=== PATIENT | male | born 1960 | race Caucasian/White ===

== ENCOUNTER 2025-06-16 13:45 | Outpatient (CLI) | payer OTHER, SELFPAY ==
--- OUTSIDE RECORDS SUMMARY | 2025-02-03 06:56 | XMS_ITS | Continuity of Care Document ---
Author Organization [facility] Address [address] [place] [address] Phone Care Team Providers Care Software Product Manager Name Role Phone Elizabeth CURRY, FACC, Prosper SERRANO Unavailable Unavailable Allergies, Adverse Reactions, Alerts Substance Reaction Status Criticality No Known Allergies Active No Inform ation Medications Medication Instructions Dosage Effective Dates (start - stop) Status Comments atorvastatin 10 mg tablet TAKE 1/2 OF A TABLET BY MOUTH EVERY OTHER DAY - Active amoxicillin 875 mg tablet TAKE 1 TABLET BY MOUTH TWICE A DAY UNTIL ALL GONE - Active Problems Condition Type Effective Dates (start - stop) Clini sharon Status Comments No Known Problems Procedures Procedure Date CT HRT W/O DYE W/CA TEST Advance Directives Directive Yes / No Effective Date File Name No Information Encounters Encounter Description Practice Location Reason(s) For Visit Diagnoses Date Provider Providers Copied on Encounter [facility], [address] [place] [address], [id number], tel:[phone] [facility] Christopher No Information 5 Elizabeth Cheng. [address] [place], [place] [address], [place], [id number], . tel:[phone] [facility], [address] [place] [address], [id number], tel:[phone] [facility] Sameer No Information 5 Elizabeth Cheng. [address] [place], [place] [address], [place], [id number], . tel:[phone] Referring Provider: Prosper Mo, [address] , [place], [address]. tel:[phone] [facility], [address] [place] [address], [id number], tel:[phone] [facility] No Information 5 [facility]. [address], [place], [place], [id number], . tel:[phone] [facility], [address] [place] [address], [id number], tel:[phone] [facility] Encounter for screening for cardiovascular disorders 5 [facility]. [address], [place], [place], [id number], . tel:[phone] Family History Family Member Type Diagnosis Age At Onset No Information Payers Payer name Insurance type Covered libertarian ID Authoriza tion(s) No Information Social History Type Description Quantity Date Captured Comments Sex Male Smoking Status No Information Chief Complaint And Reason For Visit No Information Reason For Referral Reason For Referral No Information History Of Present Illness Encounter Date Complaint History Of Prese nt Illness No Information Functional Status Date Functional Assessmen t No Information Instructions Date Instruction Additional Infor mation No Information Assessments Type Assessment Date No Information Patient Care Teams Name Effective Dates (start - stop) Status Members No Information
--- OUTSIDE RECORDS SUMMARY | 2025-02-03 06:56 | XMS_ITS | Continuity of Care Document ---
Author Organization [facility] Address [address] [place] [phone] Phone Care Team Providers Care Manager Operations Research Name Role Phone Elizabeth CURRY, FACC, Prosper [...] Diagnoses Date Provider Providers Copied on Encounter [facility], [address] [place] [address], [id number], tel:[phone] [facility] Christopher No Information 5 Elizabeth Cheng. [address] [place], [place] [address], [place], [id number], . tel:[phone] [facility], [address] [place] [address], [id number], tel:[phone] [facility] Sameer No Information 5 Elizabeth Cheng. [address] [place], [place] [address]Same[place], [place], [id number], . tel:[phone] Referring Provider: Prosper Mo, [address] , [place], [address]. tel:[phone] [facility], [address] [place] [address], [id number], tel:[phone] [facility] No Information 5 [facility]. [address], [place], [place], [id number], . tel:[phone] [facility], [address] [place] [address], [id number], tel:[phone] [facility] Encounter for screening for cardiovascular disorders 5 [facility]. [address], [place], [place], [id number], . tel:[phone] Family History Family Member Type Diagnosis Age At Onset No Information Payers Payer name Insurance type Covered democrat ID Authoriza tion(s) No Information Social History [...]
--- OUTSIDE RECORDS SUMMARY | 2025-02-03 06:56 | XMS_ITS | Continuity of Care Document ---
Author Organization [facility] Address [address] [place] [address] Phone Care Team Providers Care Receiving Specialist Name Role Phone Elizabeth CURRY, FACC, Prosper [...] Diagnoses Date Provider Providers Copied on Encounter [facility], [address] [place] [address], [id number], tel:[phone] [facility] Christopher No Information 5 Elizabeth Cheng. [address] [place], [place] [address], [id number], . tel:[phone] [facility], [address] [place] [address], [id number], tel:[phone] [facility] Sameer No Information 5 Elizabeth Cheng. [address] [place], [place] [address]Same[place], [place], [id number], . tel:[phone] Referring Provider: Prosper Mo, [address] , [place], [address]. tel:[phone] [facility], [address] [place] [address], [id number], tel:[phone] [facility] No Information 5 [facility]. [address], [place], [place], [id number], . tel:[phone] [facility], [address] [place] [address], [id number], tel:[phone] [facility] Encounter for screening for cardiovascular disorders 5 [facility]. [address], [place], [place], [id number], . tel:[phone] Family History Family Member Type Diagnosis Age At Onset No Information Payers Payer name Insurance type Covered green party ID Authoriza tion(s) No Information Social History [...]
--- OUTSIDE RECORDS SUMMARY | 2025-02-03 06:56 | XMS_ITS | Continuity of Care Document ---
Author Organization [facility] Address [address] [place] [address] Phone Care Team Providers Care Hand Ii Tube Bender Name Role Phone Elizabeth CURRY, FACC, Prosper [...] Diagnoses Date Provider Providers Copied on Encounter [facility], [address] [place] [address], [id number], tel:[phone] [facility] Christopher No Information 5 Elizabeth Cheng. [address] [place], [place] [address], [place], [id number], . tel:[phone] [facility], [address] [place] [address], [id number], tel:[phone] [facility] Sameer No Information 5 Elizabeth Cheng. [address] [place], [place] [address], [place], [id number], . tel:[phone] Referring Provider: Prosper Mo, [address] , [place], [address]. tel:[phone] [facility], [address] [place] [address], [id number], tel:[phone] [facility] No Information 5 [facility]. [address], [place], [place], [id number], . tel:[phone] [facility], [address] [place] [address], [id number], tel:[phone] [facility] Encounter for screening for cardiovascular disorders 5 [facility]. [address], [place], [place], [id number], . tel:[phone] Family History Family Member Type Diagnosis Age At Onset No Information Payers Payer name Insurance type Covered alliance party ID Authoriza tion(s) No Information Social [...]
--- OUTSIDE RECORDS SUMMARY | 2025-02-03 06:56 | XMS_ITS | Continuity of Care Document ---
Author Organization [facility] Address [address] [place] [address] Phone Care Team Providers Care Diesel Lube Tech Name Role Phone Elizabeth CURRY, FACC, Prosper [...] Diagnoses Date Provider Providers Copied on Encounter [facility], [address] [place] [address], [id number], tel:[phone] [facility] Christopher No Information 5 Elizabeth Cheng. [address] [place], [place] [address], [place], [id number], . tel:[phone] [facility], [address] [place] [address], [id number], tel:[phone] [facility] Sameer No Information 5 Elizabeth Cheng. [address] [place], [place] [address], [place], [id number], . tel:[phone] Referring Provider: Prosper Mo, [address] , [place], [address]. tel:[phone] [facility], [address] [place] [address], [id number], tel:[phone] [facility] No Information 5 [facility]. [address], [place], [place], [id number], . tel:[phone] [facility], [address] [place] [address], [id number], tel:[phone] [facility] Encounter for screening for cardiovascular disorders 5 [facility]. [address], [place], [place], [id number], . tel:[phone] Family History Family Member Type Diagnosis Age At Onset No Information Payers Payer name Insurance type Covered republican ID Authoriza tion(s) No Information Social History [...]
--- OUTSIDE RECORDS SUMMARY | 2025-02-03 06:56 | XMS_ITS | Continuity of Care Document ---
Author Organization [facility] Address [address] [place] [address] Phone Care Team Providers Care Power Plant Operators Supervisor Name Role Phone Elizabeth CURRY, FACC, Prosper [...] Diagnoses Date Provider Providers Copied on Encounter [facility], [address] [place] [address], [id number], tel:[phone] [facility] Christopher No Information 5 Elizabeth Cheng. [address] [place], [place] [address], [place], [id number], . tel:[phone] [facility], [address] [place] [address], [id number], tel:[phone] [facility] Sameer No Information 5 Elizabeth Cheng. [address] [place], [place] [address], [place], [id number], . tel:[phone] Referring Provider: Prosper Mo, [address] , [place], [address]. tel:[phone] [facility], [address] [place] [address], [id number], tel:[phone] [facility] No Information 5 [facility]. [address], [place], [place], [id number], . tel:[phone] [facility], [address] [place] [address], [id number], tel:[phone] [facility] Encounter for screening for cardiovascular disorders 5 [facility]. [address], [place], [place], [id number], . tel:[phone] Family History Family Member Type Diagnosis Age [...]
--- OUTSIDE RECORDS SUMMARY | 2025-02-03 06:56 | XMS_ITS | Continuity of Care Document ---
Author Organization [facility] Address [address] [place] [address] Phone Care Team Providers Care Supervisor Shuttle Fitting Name Role Phone Elizabeth CURRY, FACC, Prosper [...] Date Provider Providers Copied on Encounter [facility], [address] [place] [address], [id number], tel:[phone] [facility] Christopher No Information 5 Elizabeth Cheng. [address] [place], [place] [address], [place], [id number], . tel:[phone] [facility], [address] [place] [address], [id number], tel:[phone] [facility] Sameer No Information 5 Elizabeth Cheng. [address] [place], [place] [address]Same[place], [place], [id number], . tel:[phone] Referring Provider: Prosper Mo, [address] , [place], [address]. tel:[phone] [facility], [address] [place] [address], [id number], tel:[phone] [facility] No Information 5 [facility]. [address], [place], [place], [id number], . tel:[phone] [facility], [address] [place] [address], [id number], tel:[phone] [facility] Encounter for screening for cardiovascular disorders 5 [facility]. [address], [place], [place], [id number], . tel:[phone] Family History Family Member Type Diagnosis Age [...]
--- OUTSIDE RECORDS SUMMARY | 2025-02-03 06:56 | XMS_ITS | Continuity of Care Document ---
Author Organization [facility] Address [address] [place] [phone] Phone Care Team Providers Care Stock Checker Name Role Phone Elizabeth CURRY, FACC, Prosper [...] Diagnoses Date Provider Providers Copied on Encounter [facility], [address] [place] [address], [id number], tel:[phone] [facility] Christopher No Information 5 Elizabeth Cheng. [address] [place], [place] [address], [place], [id number], . tel:[phone] [facility], [address] [place] [address], [id number], tel:[phone] [facility] Sameer No Information 5 Elizabeth Cheng. [address] [place], [place] [address]Same[place], [place], [id number], . tel:[phone] Referring Provider: Prosper Mo, [address] , [place], [address]. tel:[phone] [facility], [address] [place] [address], [id number], tel:[phone] [facility] No Information 5 [facility]. [address], [place], [place], [id number], . tel:[phone] [facility], [address] [place] [address], [id number], tel:[phone] [facility] Encounter for screening for cardiovascular disorders 5 [facility]. [address], [place], [place], [id number], . tel:[phone] Family History Family Member Type Diagnosis Age At Onset No Information Payers Payer name Insurance type Covered constitution party ID Authoriza tion(s) No Information Social [...]
--- OUTSIDE RECORDS SUMMARY | 2025-02-03 06:56 | XMS_ITS | Continuity of Care Document ---
Author Organization [facility] Address [address] [place] [phone] Phone Care Team Providers Care Customer Account Executive Name Role Phone Elizabeth CURRY, FACC, Prosper [...] Diagnoses Date Provider Providers Copied on Encounter [facility], [address] [place] [address], [id number], [phone] [facility] Christopher No Information 5 Elizabeth Cheng. [address] [place], [place] [address], [place], [id number], . tel:[phone] [facility], [address] [place] [address], [id number], tel:[phone] [facility] Sameer No Information 5 Elizabeth Cheng. [address] [place], [place] [address], [place], [id number], . tel:[phone] Referring Provider: Prosper Mo, [address] , [place], [address]. tel:[phone] [facility], [address] [place] [address], [id number], tel:[phone] [facility] No Information 5 [facility]. [address], [place], [place], [id number], . tel:[phone] [facility], [address] [place] [address], [id number], tel:[phone] [facility] Encounter for screening for cardiovascular disorders 5 [facility]. [address], [place], [place], [id number], . tel:[phone] Family History Family Member Type Diagnosis Age [...]
--- OUTSIDE RECORDS SUMMARY | 2025-02-03 06:56 | XMS_ITS | Continuity of Care Document ---
Author Organization [facility] Address [address] [place] [phone] Phone Care Team Providers Care Relay Technician Name Role Phone Elizabeth CURRY, FACC, Prosper [...] Diagnoses Date Provider Providers Copied on Encounter [facility], [address] [place] [address], [id number], tel:[phone] [facility] Christopher No Information 5 Elizabeth Cheng. [address] [place], [place] [address], [place], [id number], . tel:[phone] [facility], [address] [place] [address], [id number], tel:[phone] [facility] Sameer No Information 5 Elizabeth Cheng. [address] [place], [place] [address]Sameer [place], [place], [id number], . tel:[phone] Referring Provider: Prosper Mo, [address] , [place], [address]. tel:[phone] [facility], [address] [place] [address], [id number], tel:[phone] [facility] No Information 5 [facility]. [address], [place], [place], [id number], . tel:[phone] [facility], [address] [place] [address], [id number], tel:[phone] [facility] Encounter for screening for cardiovascular disorders 5 [facility]. [address], [place], [place], [id number], . tel:[phone] Family History Family Member Type Diagnosis Age [...]
--- OUTSIDE RECORDS SUMMARY | 2025-02-03 06:56 | XMS_ITS | Continuity of Care Document ---
Author Organization [facility] Address [address] [place] [address] Phone Care Team Providers Care Sales Order Administrator Name Role Phone Elizabeth CURRY, FACC, Prosper [...] Diagnoses Date Provider Providers Copied on Encounter [facility], [address] [place] [address], [id number], [phone] [facility] Christopher No Information 5 Elizabeth Cheng. [address] [place], [place] [address], [place], [id number], . tel:[phone] [facility], [address] [place] [address], [id number], [phone] [facility] Sameer No Information 5 Elizabeth Cheng. [address] [place], [place] [address], [place], [id number], . tel:[phone] Referring Provider: Prosper Mo, [address] , [place], [address]. tel:[phone] [facility], [address] [place] [address], [id number], tel:[phone] [facility] No Information 5 [facility]. [address], [place], [place], [id number], . tel:[phone] [facility], [address] [place] [address], [id number], tel:[phone] [facility] Encounter for screening for cardiovascular disorders 5 [facility]. [address], [place], [place], [id number], . tel:[phone] Family History Family Member Type Diagnosis Age [...]
--- OUTSIDE RECORDS SUMMARY | 2025-02-03 06:56 | XMS_ITS | Continuity of Care Document ---
Author Organization [facility] Address [address] [place] [address] Phone Care Team Providers Care Risk Analyst Name Role Phone Elizabeth CURRY, FACC, Prosper [...] Diagnoses Date Provider Providers Copied on Encounter [facility], [address] [place] [address], [id number], tel:[phone] [facility] Christopher No Information 5 Elizabeth Cheng. [address] [place], [place] [address], [place], [id number], . tel:[phone] [facility], [address] [place] [address], [id number], tel:[phone] [facility] Sameer No Information 5 Elizabeth Cheng. [address] [place], [place] [address], [place], [id number], . tel:[phone] Referring Provider: Prosper Mo, [address] , [place], [address]. tel:[phone] [facility], [address] [place] [address], [id number], tel:[phone] [facility] No Information 5 [facility]. [address], [place], [place], [id number], . tel:[phone] [facility], [address] [place] [address], [id number], tel:[phone] [facility] Encounter for screening for cardiovascular disorders 5 [facility]. [address], [place], [place], [id number], . tel:[phone] Family History Family Member Type Diagnosis Age [...]
--- OUTSIDE RECORDS SUMMARY | 2025-02-03 06:56 | XMS_ITS | Continuity of Care Document ---
Author Organization [facility] Address [address] [place] [address] Phone Care Team Providers Care Customer Expert Name Role Phone Elizabeth CURRY, FACC, Prosper [...] Diagnoses Date Provider Providers Copied on Encounter [facility], [address] [place] [address], [id number], tel:[phone] [facility] Christopher No Information 5 Elizabeth Cheng. [address] [place], [place] [address], [place], [id number], . tel:[phone] [facility], [address] [place] [address], [id number], tel:[phone] [facility] Sameer No Information 5 Elizabeth Cheng. [address] [place], [place] [address]Sameer [place], [place], [id number], . tel:[phone] Referring Provider: Prosper Mo, [address] , [place], [address]. tel:[phone] [facility], [address] [place] [address], [id number], tel:[phone] [facility] No Information 5 [facility]. [address], [place], [place], [id number], . tel:[phone] [facility], [address] [place] [address], [id number], tel:[phone] [facility] Encounter for screening for cardiovascular disorders 5 [facility]. [address], [place], [place], [id number], . tel:[phone] Family History Family Member Type Diagnosis Age [...]
--- OUTSIDE RECORDS SUMMARY | 2025-02-03 06:56 | XMS_ITS | Continuity of Care Document ---
Author Organization [facility] Address [address] [place] [address] Phone Care Team Providers Care Head Waiter/Waitress Banquet Name Role Phone Elizabeth CURRY, FACC, Prosper [...] Diagnoses Date Provider Providers Copied on Encounter [facility], [address] [place] [address], [id number], [phone] [facility] Christopher No Information 5 Elizabeth Cheng. [address] [place], [place] [address], [place], [id number], . tel:[phone] [facility], [address] [place] [address], [id number], tel:[phone] [facility] Sameer No Information 5 Elizabeth Cheng. [address] [place], [place] [address]Sameer [place], [place], [id number], . tel:[phone] Referring Provider: Prosper Mo, [address] , [place], [address]. tel:[phone] [facility], [address] [place] [address], [id number], tel:[phone] [facility] No Information 5 [facility]. [address], [place], [place], [id number], . tel:[phone] [facility], [address] [place] [address], [id number], tel:[phone] [facility] Encounter for screening for cardiovascular disorders 5 [facility]. [address], [place], [place], [id number], . tel:[phone] Family History Family Member Type Diagnosis Age [...]
--- NOTE | ~2025-06-16 | PE_ITS ---
EXAMINATION: PET_PETPSMAST_PT DATE: 06/17/2025 06:58 INDICATION: Prostate cancer TECHNIQUE: 4.871 mCi of Illucix Ga-68([id number]) was administered i.v. Low dose computed tomography (CT) images were acquired from the base of the brain to the base of the brain to the proximal thighs for attenuation correction and anatomic localization. Positron emission tomography (PET) images were acquired in the same distribution beginning 60 minutes after injection. Images including fused PET/CT images were reconstructed in axial, coronal, and sagittal planes. Automated exposure control technique was employed. The dose-length product was 818.64mGy-cm. COMPARISON: None FINDINGS: Head/neck: Typical pattern of symmetric physiologic increased activity in the lacrimal, parotid and submandibular glands as well as along the mucosa of the nasal and oral cavities, pharynx and hypopharynx. No pathologically enlarged cervical lymphadenopathy or suspicious foci of increased uptake in the visualized head or neck. Chest: There are several spiculated solid and groundglass nodules scattered along linear bands of atelectasis/scarring in the bilateral upper lungs measuring up to 1 cm in maximal diameters which are without PSMA activity and most likely infectious/inflammatory in etiology. Mild atelectasis in the dependent lower lobes. No pleural effusion. Heart size is normal. Atherosclerotic coronary artery calcific location. No pericardial effusion. Thoracic aorta is normal in caliber. No pathologically enlarged or PSMA avid thoracic lymphadenopathy. Abdomen/pelvis/proximal thighs: Physiologic renal accumulation and excretion of activity in the kidneys, bladder and along portions of ureters. Prostatomegaly measuring 4.5 x 3.5 cm. 1.5 cm focus of increased activity with maximal SUV of 15.4 minutes and slightly anterior and to the left at the center of the prostate. Normal degree and slightly heterogenous pattern of increased uptake throughout the liver and spleen without radiologic correlate or dominant PSMA avid lesion. The gallbladder, pancreas and bilateral adrenal glands are normal. Moderate uptake scattered throughout the bowels with typical duodenal and proximal jejunal p redominance and without radiologic correlate, also likely physiologic. No other abnormal foci of increased uptake or pathologically enlarged lymphadenopathy in the abdomen, pelvis or proximal thighs. Musculoskeletal: Severe lumbar and lower thoracic spondylosis and moderate cervical spondylosis. Small sclerotic bone island without abnormal activity in the left supra- acetabular region. No suspicious lytic, blastic or abnormally PSMA avid bone lesions. IMPRESSION: 1. Prominent activity in the central prostate consistent with primary prostate cancer. No PSMA avid lesions suspicious for metastatic prostate cancer. 2. Several up to 1 cm irregular spiculated nodular opacities without PSMA activity in the bilateral upper lungs along scattered bands of discoid atelectasis/scarring which given appearance and distribution are most likely infectious/inflammatory in etiology. Recommend correlation with any prior outside cross-sectional imaging. If long-term stability cannot be confirmed would recommend follow-up with 3 month low-dose noncontrast chest CT. Reviewed, dictated and finalized at location A. [facility] IMPRESSION: 1. Prominent activity in the central prostate consistent with primary prostate cancer. No PSMA avid lesions suspicious for metastatic prostate cancer. 2. Several up to 1 cm irregular spiculated nodular opacities without PSMA activ ity in the bilateral upper lungs along scattered bands of discoid atelectasis/s carring which given appearance and distribution are most likely infectious/infl ammatory in etiology. Recommend correlation with any prior outside cross-sectio nal imaging. If long-term stability cannot be confirmed would recommend follow- up with 3 month low-dose noncontrast chest CT.
--- OUTSIDE RECORDS SUMMARY | 2025-06-16 20:36 | XMS_ITS | Clinical Summary ---
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 Date Recorded Getting School Help Needed Denies 08/01 Sex and Gender Information Value Date Recorded Sex Assigned at Not on file Legal Sex Male 7:23 PM [employer] Gender Identity Male 09/30/2020 7:44 AM [employer] Sexual Orientation Straight 09/30/2020 7: 44 AM [employer] Last Filed Vital Signs Vital Sign Reading Time Taken Comments Blood Pressure 128/80 01/08/2025 3:26 PM CDT Pulse 100 01/08/2025 3:26 PM CDT Temperature 36.7 C (98.1 F) 01/08/2025 3:26 PM CDT Respiratory Rate 16 01/08/2025 3:26 PM CDT Oxygen Saturation 97% 01/08/2025 3:26 PM CDT Inhaled Oxygen Concentration - - Weight 71.3 kg (157 lb 3.2 oz) 01/08/2025 3:26 P M CDT Height 163.8 cm (5' 4.5) 01/08/2025 3:26 PM CDT Body Mass Index 26.57 01/08/2025 3:26 PM CDT Plan of Treatment Health Maintenance Due Date Last Done Comments Covid-19 Vaccine ( season) 2025 06/16/2021, 05/26/2021 Influenza Vaccine (#1) 2025 Depression Screening 01/08/2026 01/08/2025, 07/08/2024, 01/06/2024, Additional history exists Regular Well Visit/Exam 18-64 01/08/2026 01/08/2025, 01/06/2024, 05/04/2022, Additional history exists Prostate Cancer Screening-PSA 01/12/2026 01/12/2025, 07/18/2024, 12/30/2023, Additional history exists Colon Cancer Screening-Colonoscopy 06/27/2027 06/27/2020, 11/13/2013, 11/13/2013 DTaP/Tdap/Td Vaccine (3 - Td or Tdap) 04/28/2030 04/28/2020, 02/03/2007 Hepatitis C Screening Completed 08/03/2017 Colon Cancer Screening-CT Colonography Discontinued 06/27/2020, 11/13/2013, 11/13/2013 Colon Cancer Screening-DNA Stool Discontinued 06/27/2020, 11/13/2013, 11/13/2013 Colon Cancer Screening-FIT Discontinued 06/27, 11/13/2013, 11/13/2013 Colon Cancer Screening-Sigmoidoscopy Discontinued 06/27/2020, 11/13/2013, 11/13/2013 Hepatitis B Screening Completed 07/04/2024 Zoster Vaccine Completed 07/08/2024, 01/06/2024 Pneumococcal vaccine <65 Aged Out No longer eligible based on patient's age to complete this topic Procedures Procedure Name Priority Date/Time Associated Diagnosis Comments PSA SCREEN Routine 01/12/2025 7:31 AM CDT Annual physical exam Abnormal PSA COLONOSCOPY 06/27/2020 10:27 AM [employer] HEPATITIS C AB W/REFL TO HCV RNA, QN, PCR (REFL) Routine 08/03/2017 8:43 AM [employer] Need for hepatitis C screening test from Last 3 Months or Most Recently Relevant to Health Maintenance Results * (ABNORMAL) PSA screen (01/12/2025 7:31 AM CDT) PSA 13.27(H) < OR = 4.00 ng/mL [facility] Comment: The total PSA value from this assay system is standardized against the WHO standard. The test result will be approximately 20% lower when compared to the equimolar-standardized total PSA (Argelia Paul). Comparison of serial PSA results should be interpreted with this fact in mind. This test was performed using the Siemens chemiluminescent method. Values obtained from different assay methods cannot be used interchangeably. PSA levels, regardless of value, should not be interpreted as absolute evidence of the presence or absence of disease. Blood 01/12/2025 7:31 AM CDT 01/12/2025 7:32 AM CDT Narrative [facility] - 01/13/2025 9:29 AM CDT FASTING:YES FASTING: YES us Migel MONCADA LAB BLOOD ORDERABLES Fi nal Result [facility] [address] [place] [address] * COLONOSCOPY (06/27/2020 10:27 AM [employer]) Anatomical Region Laterality Modality Other Narrative Procedure Note Rosita Valencia MD - 06/27/2020 10:27 AM [facility] Patient Name: Jerome Wilburn Procedure Date: 06/27/2020 10:27AM Date of : 1960 Admit Type: Outpatient Age: 59 Gender: Male Attending MD: Rosita Valencia M.D. Room: [facility] 1 Note Status: Finalized Patient Profile: This is a 59 year old male. Procedure: Colonoscopy Indications: High risk colon cancer surveillance: Personalhistory of colonic polyps, Last colonoscopy: October 2013 Referring MD: Lv Rogers M.D. Providers: Rosita Valencia M.D. Impression: - The entire examined colon is normal. - Internal hemorrhoids. - No specimens collected. Recommendation: - Repeat colonoscopy in 8 years for screeningpurposes. - Continue present medications. Medicines: Monitored Anesthesia Care Complications: No immediate complications. Estimated Blood Loss: Estimated blood loss: none. Procedure: Pre-Anesthesia Assessment: - Prior to the procedure, a History and Physical was performed, and patient medications and allergieswere reviewed. The patient's tolerance of previous anesthesia was also reviewed. The risks and benefitsof the procedure and the sedation options and riskswere discussed with the patient. All questions were answered, and informed consent was obtained. Prior Anticoagulants: The patient has taken no previous anticoagulant or antiplatelet agents. ASA Grade Assessment: II - A patient with mild systemicdisease. After reviewing the risks and benefits, the patientwas deemed in satisfactory condition to undergo the procedure. The benefits, risks and alternatives of theprocedure and sedation were discussed and informed consent was obtained. All questions were answered. Please referto the signed informed consent document in the medical record. The bowel preparation used was Miralax. The bowel preparation used was bisacodyl tablets. Bowel prep was administered using a split dose. The scopewas passed under direct vision. The PediatricColonoscope [id number] was introduced through the anusand advanced to the the cecum, identified by appendiceal orifice and ileocecal valve. The quality of thebowel preparation was good. Findings: The perianal and digital rectal examinations were normal. The cecum appeared normal. The colon (entire examined portion) appeared normal. No polyps and no mass lesions noted. Internal hemorrhoids were found during retroflexion. The hemorrhoids were small Electronically signed by Rosita Valencia M.D. Rosita Valencia M.D. 06/27/2020 12:41:44 PM Number of Addenda: 0 Note Initiated On: 06/27/2020 10:27 AM Procedure Code(s): --- Professional --- 33885, Colonoscopy, flexible; diagnostic, including collection of specimen(s) by brushing or washing, when performed (separateprocedure) Diagnosis Code(s): --- Professional --- Z86.010, Personal history of colonic polyps K64.8, Other hemorrhoids K57.30, Diverticulosis of large intestine without perforation orabscess without bleeding CPT copyright 2017 [employer]. All rights reserved. The codes documented in this report are preliminary and upon road contractor reviewmay be revised to meet current compliance requirements. Recognized by the [employer] for promoting quality in endoscopy Rosita Valencia MD ENDOSCOPY PROCEDURES Final Result * HEPATITIS C AB W/REFL TO HCV RNA, QN, PCR (REFL) (08/03/2017 8:43 AM [employer]) Hep C Ab NON-REACTI VE NON-REACTI VE [facility] [place] SIGNAL TO CUT-OFF 0.03 <1.00 [facility] [place] Blood specimen (specimen) 08/03/2017 8:43 AM [employer] 08/04/2017 3:44 AM [employer] Narrative Resulting Agency Comment Performing Organization Information: Site ID: [facility] Name: [facility] Address: [address] [address] Director: Flaco Chakraborty D.O., MPH us Lv Rogers MD LAB BLOOD ORDERABLE S Final Result [facility] - [facility] from Last 3 Months or Most Recently Relevant to Health Maintenance Insurance [facility] [address] [place] [address] Advance Directives For more information, please contact: [phone] * Full Code (Latest Code Status on File) Date Activated Date Inactivated Comments 06/27/2020 10:45 AM 06/27/2020 5:36 PM * Full Code Date Activated Date Inactivated Comments 06/27/2020 10:45 AM 06/27/2020 10:45 AM * Full Code Date Activated Date Inactivated Comments 01/01/2020 10:08 PM 01/05/2020 7:29 PM * Full Code Date Activated Date Inactivated Comments 01/01/2020 10:08 PM 01/01/2020 10:08 PM Care Teams Cerner Analyst Relationship Specialty Start Date End Date Migel Bobby PA [address] [place] [address] [place] [id number] PCP - General Internal Medicine 03/29/22
== END 2025-06-16 13:46 | disposition home or self-care (01) ==
PROVIDERS: PCP Physician Assistant; Visit Provider Urology
DX: C61 Malignant neoplasm of prostate (principal)
CPT/HCPCS: 78815; A9596